=== PATIENT | male | born 1950 | race Caucasian/White ===

== ENCOUNTER 2024-05-15 15:49 | Emergency (ER) | payer MEDICARE, OTHER ==
[~2024-05-15] VITALS: Ht 175.3 cm; Wt 74.1 kg
[2024-05-15 15:54] VITALS: TEMP 98.4
[2024-05-15 16:42] LABS: BASO # 0.1 K/mm3 (0.0-0.2); BASO % 0.7 % (0.0-2.0); EOS # 0.2 K/mm3 (0.0-0.7); EOS % 1.5 % (0.0-4.0); GRAN # 7.6 K/mm3 (1.4-6.5); GRAN % 71.4 % (42.2-75.2); HEMATOCRIT 43.4 % (42.0-52.0); HEMOGLOBIN 14.5 g/dl (13.5-18.0); LYMPH # 1.8 K/mm3 (1.2-3.4); LYMPH % 16.7 % (20.0-51.0); MEAN CELL VOLUME 95 fl (80.0-100.0); MEAN CORPUSCULAR HEMOGLOBIN 32 pg (27-31); MEAN CORPUSCULAR HGB CONC 33 g/dl (33.0-37.0); MEAN PLATELET VOLUME 11.2 fl (7.4-10.4); MONO % 9.4 % (1.7-9.3); PLATELET COUNT 221 K/mm3 (130-400); RED BLOOD COUNT 4.59 M/mm3 (4.20-5.60); REDCELL DISTRIBUTION WIDTH-CV 13.2 % (11.5-14.5)
[2024-05-15 17:03] LABS: ALANINE AMINOTRANSFERASE 13 U/L (0-55); ALBUMIN 4.1 g/dL (3.4-4.8); ALKALINE PHOSPHATASE 82 U/L (40-150); ANION GAP 12 mmol/L (7-16); AST,SGOT 23 U/L (5-34); BILIRUBIN,TOTAL 1.3 mg/dL (0.2-1.2); BLOOD UREA NITROGEN 15 mg/dL (8-26); CALCIUM 9.9 mg/dL (8.4-10.2); CHLORIDE 104 mEq/L (98-107); CREATININE, serum 1.43 mg/dL (0.72-1.25); GLUCOSE 106 mg/dL (70-99); LIPASE 47 U/L (8-78); POTASSIUM 4.5 mEq/L (3.5-4.5); SODIUM 138 mEq/L (136-145); TOTAL PROTEIN 8.3 g/dl (6.2-8.1)
[2024-05-15 17:09] LABS: TROPONIN-I < 0.010 ng/mL (0.00-0.033)
[2024-05-15] MEDS ORDERED: Morphine 4 MG/ML VIAL IV ONE (17:30)
[2024-05-15] MEDS ORDERED: Ondansetron 4 MG/2 ML VIAL IV ONE (17:30)
[2024-05-15] MEDS ORDERED: Iohexol 300 - 100 ML VIAL IV ONE (18:40)
[2024-05-15] MEDS ORDERED: NS 50 ML IV SCH (18:41)
[2024-05-15] MEDS ORDERED: PERCOCET 325 MG1 TA2 PO (19:50)
[2024-05-15] MEDS ORDERED: Home oxyCODONE/Acetaminophen 5/325 MG #4 TAB/PACK PO ONE (20:00)
[2024-05-15 20:48] VITALS: BP 117/65; PULSE 79
== END 2024-05-15 20:49 | disposition home or self-care (01) ==
LOC: COL.ER 15:49
PROVIDERS: Physician Assistant
DX: K82.9 Disease of gallbladder, unspecified (principal); Z79.82 Long term (current) use of aspirin; Z86.79 Personal history of other diseases of the circulatory system
CPT/HCPCS: J2270; J2405; Q9967